=== PATIENT | male | born 1990 | race Two or more races ===

== ENCOUNTER 2019-07-20 22:47 | Emergency (ER) | payer SELFPAY ==
[~2019-07-20] VITALS: Ht 180.3 cm; Wt 100.0 kg
[2019-07-20] MEDS ORDERED: IPRATROPIUM/ALBUTEROL 0.5-3(2.5)MG/3ML NEB HHN ONE (23:45)
[2019-07-21] MEDS ORDERED: IPRATROPIUM/ALBUTEROL 0.5-3(2.5)MG/3ML NEB HHN ONE (01:00)
[2019-07-21 01:05] VITALS: BP 148/89
== END 2019-07-21 01:23 | disposition home or self-care (01) ==
LOC: ER 22:47
DX: J45.909 Unspecified asthma, uncomplicated (principal)
CPT/HCPCS: 71045; 99284; Z7610

== ENCOUNTER 2023-08-15 12:45 | Emergency (ER) | payer MEDICAID, OTHER ==
[~2023-08-15] VITALS: Ht 182.9 cm; Wt 123.0 kg
[2023-08-15 13:09] VITALS: BP 135/78; PULSE 82; RESP 18; TEMP 98.2; O2SAT 99
[2023-08-15] MEDS: TETANUS, DIPHTHERIA, PERTUSSIS VAC/PF 0.5ML (>10YR OLD) IM ONE (14:00)
[2023-08-15] MEDS: LIDOCAINE HCL/PF 1% 10 MG/ML 5ML VIAL INFIL ONE (14:00)
[2023-08-15] MEDS: BACITRACIN ZINC OINT UDPKT TOP ONE (14:00)
[2023-08-15] MEDS ORDERED: ALBU6.7H15 INH (17:15)
== END 2023-08-15 17:33 | disposition home or self-care (01) ==
LOC: ER 12:45
DX: S61.217A Laceration without foreign body of left little finger without damage to nail, initial encounter (principal); J45.909 Unspecified asthma, uncomplicated; W23.0XXD Caught, crushed, jammed, or pinched between moving objects, subsequent encounter; Y93.89 Activity, other specified; Y92.89 Other specified places as the place of occurrence of the external cause; Y99.8 Other external cause status
CPT/HCPCS: 12001; 99282; J3490; Z7610 ×2

== ENCOUNTER 2023-09-10 21:38 | Emergency (ER) | payer OTHER ==
[~2023-09-10] VITALS: Ht 177.8 cm; Wt 98.0 kg
[~2023-09-10 21:38] MED LIST: ALBU6.7H15 INH
[2023-09-10 21:55] VITALS: TEMP 98
[2023-09-10 22:14] VITALS: PULSE 112; RESP 20; O2SAT 95
[2023-09-10] MEDS: ALBUTEROL (0.083%) 2.5MG/3ML NEB HHN STA (22:14)
[2023-09-10] MEDS: IPRATROPIUM BROMIDE (0.02%) 0.5MG/2.5ML NEB HHN STA (22:15)
[2023-09-10] MEDS: METHYLPREDNISOLONE SOD SUCC 125MG/2ML (ACT-O-VIAL) IV STA (22:16)
[2023-09-11 00:06] LABS: BASOPHILS % 0.6 % (0.0-2.0); EOSINOPHILS % 2.1 % (0.0-5.0); HEMATOCRIT. 44.7 % (42.0-52.0); LYMPHOCYTES % 11.4 % (20.0-50.0); MEAN CORPUSCULAR HEMOGLOBIN 30.8 pg (28.0-32.0); MEAN CORPUSCULAR HGB CONC 33.7 g/dL (31.0-37.0); MEAN CORPUSCULAR VOLUME 91.4 fL (80.0-94.0); MEAN PLATELET VOLUME 9.3 fl (7.4-10.4); MONOCYTES % 5.1 % (2.0-8.0); NEUTROPHILS % 80.8 % (40.0-76.0); PLATELET 218 x1000/uL (130-400); RED BLOOD CELL COUNT 4.89 mill/uL (4.7-6.1); RED CELL DISTRIBUTION WIDTH 12.6 % (11.6-14.6); WHITE BLOOD COUNT 13.6 x1000/uL (4.5-11.0)
[2023-09-11 00:12] LABS: CHLORIDE 105 mEq/L (98-107); POTASSIUM 3.7 mEq/L (3.5-5.1); SODIUM 138 mEq/L (136-145)
[2023-09-11 00:13] LABS: CALCIUM 9.2 mg/dL (8.7-10.4); CARBON DIOXIDE 26 mEq/L (21-32)
[2023-09-11 00:18] LABS: CREATININE 0.7 mg/dL (0.6-1.3); GLUCOSE 107 mg/dL (70-105); UREA NITROGEN BLOOD 11 mg/dL (9-23)
[2023-09-11 00:22] LABS: ALANINE AMINOTRANSFERASE 22 IU/L (10-49); ALBUMIN 4.3 g/dL (3.2-4.8); ASPARTATE AMINOTRANSFERASE 18 IU/L (<34); BILIRUBIN TOTAL 0.5 mg/dL (0.1-1.0); PROTEIN TOTAL 6.5 g/dL (6.0-8.3)
[2023-09-11] MEDS ORDERED: P20 MT (00:36)
[2023-09-11] MEDS ORDERED: ALBU6.7H15 INH (00:36)
[2023-09-11 01:18] VITALS: BP 126/89; PULSE 87; RESP 14
== END 2023-09-11 01:35 | disposition home or self-care (01) ==
LOC: ER 21:38
DX: J45.901 Unspecified asthma with (acute) exacerbation (principal); Z00.00 Encounter for general adult medical examination without abnormal findings
CPT/HCPCS: 80053; 85025; 36415; 71045; 93005; 94644; 96374; 99285; J2919; Z7610 ×3; 94640